=== PATIENT | female | born 1975 | race Caucasian/White ===

== ENCOUNTER 2022-07-31 08:04 | Outpatient (REF) | payer OTHER, SELFPAY ==
[2022-07-31 10:44] LABS: Hematocrit 40.3 % (37.0-47.0); Hemoglobin 13.4 g/dl (12.0-16.0); Mean Corpuscular HGB Conc 33.3 g/dl (31.0-35.0); Mean Corpuscular Hemoglobin 29.6 pg (27.0-33.0); Mean Platelet Volume 10.6 fL (9.4-12.3); Platelet Count 246 X10*3/uL (160-400); Red Blood Count 4.53 X10*6/uL (4.20-5.50); Red Cell Distribution Width 12.3 % (11.0-16.0); White Blood Count 6.1 X10*3/uL (4.8-10.8)
[2022-07-31 11:05] LABS: Alanine Aminotransferase 21 U/L (0-31); Albumin Level 4.2 g/dL (3.5-5.0); Alkaline Phosphatase 82 U/L (39-117); Anion Gap 11 (12-20); Aspartate Amino Transferase 24 U/L (5-31); Bilirubin Total 0.7 mg/dL (0.0-1.0); Blood Urea Nitrogen 11 mg/dL (9-16); Calcium 9.4 mg/dL (8.4-10.2); Carbon Dioxide 24 mmol/L (22-29); Chloride 107 mmol/L (96-108); Cholesterol 136 mg/dL; Estimated Glomerular Filt Rate > 60; Glucose Fasting 87 mg/dL (60-99); HDL Cholesterol 49 mg/dL; LDL Cholesterol Calculated 76 mg/dl; Potassium 4.1 mmol/L (3.3-5.1); Sodium 138 mmol/L (135-145); Total Protein 6.6 g/dL (6.5-8.0); Triglycerides 56 mg/dL
[2022-07-31 11:49] LABS: HCG Quantitative < 2 mIU/mL; TSH reflex Free T4 1.04 uIU/mL (0.32-4.0)
== END 2022-07-31 08:05 | disposition home or self-care (01) ==
LOC: HO.WFDLDS 08:04
PROVIDERS: Visit Provider Hospitalist
DX: Z00.00 Encounter for general adult medical examination without abnormal findings (principal); N92.6 Irregular menstruation, unspecified
CPT/HCPCS: 36415; 80053; 80061; 84443; 84702; 85027

== ENCOUNTER 2023-04-18 08:30 | Day surgery (SDC) | payer OTHER, SELFPAY ==
[2023-04-18 09:25] LABS: UPreg QC Valid YES; Urine Pregnancy NEGATIVE (NEGATIVE)
[2023-04-18 09:30] VITALS: BP 135/82; PULSE 61; RESP 18; TEMP 36.9; O2SAT 100; BMI 23.5
--- NOTE | 2023-04-18 09:31 | HO.ANESPROP2 ---
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 Meds Allergies Allergy/AdvReac Type Severity Reaction Status Date / Time No Known Allergies Allergy Verified 07/23/22 14:21 Exam Pertinent Lab Results Pertinent Lab Results: Laboratory Tests 04/18/23 09:05 Urine Test NEGATIVE Airway Mallampati Class: II TM Dist: >3cm Neck ROM: Full Loose/Missing/Broken Teeth: No Heart: RRR Lungs: CTA Assessment and Plan Assessment Anesthesia Assessment: Anesthesia Plan Discussed and Chart Reviewed Final Anesthetic Review History of Problems with Anesthesia: No NPO: Yes ASA Class: I Final Preanesthetic Review: Meds/Allgs Chart Reviewed, Consent Obtained/Reviewed and Anes Risks/Benef Reviewed Patient Risk: Low Procedure Risk: Low Anesthetic Plan Anesthetic Plan: MAC: Disposition: Standard PACU
--- NOTE | 2023-04-18 09:35 | MHC.SHP ---
Pre-Procedural Eval Section A Date of Service: 04/18/23 The patient is an INPATIENT: No The History & Physical has been completed within 30 days and I have reviewed it.: No Section B Chief Complaint: Colon cancer screening Relevant Family History (Specify if Yes): No Relevant Social History: None Present Medications: see Short Stay Collaborative assessment Medical History: No relevant PMH History of Previous Operations: No relevant previous surgery Allergies: Allergies Allergy/AdvReac Type Severity Reaction Status Date / Time No Known Allergies Allergy Verified 07/23/22 14:21 Review of Systems Sugical H&P ROS: Negative: Constitution, Cardiovascular, Respiratory and Gastrointestinal Exam Surgical H&P Exam: Normal: Heart, Normal: Lungs, Normal: Extremities and Normal: Abdomen Plan Diagnosis/Plan: Change (proceed with colonoscopy today) I have reviewed the history and physical and performed a pertinent physical examination on my patient. No changes have occurred unless specified. Time Spent With Patient Time: Total time managing care of this patient today ____ minutes.
[2023-04-18] MEDS: Lactated Ringers 1,000 ML 100 ML IVCONT (09:39)
--- NOTE | 2023-04-18 09:41 | W.PM.OPN ---
Operative Note Operative Note Date of Service: 04/18/23 Narrative: COLONOSCOPY TILL CECUM WITH BIOPSIES Pre-op diagnosis: Colon cancer screening (1st colonoscopy) Post-op diagnosis:? Colon polyp, diverticulosis, hemorrhoids Endoscopist:? Malvin Still MD Anesthesia:?MAC Consent: Indications for the procedure and potential complications of bleeding, perforation, reaction to medications and missed diagnosis were discussed with the patient and informed consent was obtained. Instrument: Olympus PCF H 190 L variable stiffness pediatric colonoscope Monitoring: Vital signs and clinical assessment, intermittent blood pressure monitoring, continuous EKG monitoring, Pulse oximetry and Carbon Dioxide monitoring were done throughout the procedure. Please see anesthesia flowsheet. Colon withdrawl time was 10 minutes. Procedure: The patient was placed in the left lateral decubitis position and pre-procedure medications were administered. After a digital rectal examination of the ano-rectum, the video colonoscope was inserted into the rectum and advanced through the colon to the cecum. The colonoscope was slowly withdrawn in a retrograde panoramic fashion and the colon mucosa was carefully examined including a retroflexed view of the rectum. Findings and interventions are described below. Procedure Difficulty: Colon was long and tortuous and there was some loop formation Findings: Terminal Ileum: Not evaluated Cecum: Normal Ascending Colon: A 2-3 mm sessile polyp in the proximal AC - removed with a cold biopsy Transverse Colon: Normal Descending Colon: Normal Sigmoid Colon: Moderate diverticulosis Rectum: Normal Ano-rectum: Moderate internal hemorrhoids Colon preparation: Excellent [place] Bowel Preparation Scale Right colon; 3 Transverse colon: 3 Left colon; 3 (0 = Unprepared colon segment with mucosa not seen due to solid stool that cannot be cleared. 1 = Portion of mucosa of the colon segment seen, but other areas of the colon segment not well seen due to staining, residual stool and/or opaque liquid. 2 = Minor amount of residual staining, small fragments of stool and/or opaque liquid, but mucosa of colon segment seen well. 3 = Entire mucosa of colon segment seen well with no residual staining, small fragments of stool or opaque liquid) Impression and Post Procedure Diagnosis: Colonoscopy Findings: One tiny polyp removed Moderate diverticulosis seen in the sigmoid colon Moderate hemorrhoids on retroflexed exam. Plan: I will send a letter with pathology results Repeat Colonoscopy interval based on path results - in 5 years if polyps are adenomatous and 10 years if polyps are hyperplastic. Above findings were reviewed with the patient and colon polyps and diverticulosis handouts were given in the discharge area
[2023-04-18 10:17] VITALS: BP 108/62; PULSE 69; RESP 18; TEMP 36.3; O2SAT 100
[2023-04-18 10:32] VITALS: BP 111/67; PULSE 60; RESP 16; TEMP 36.8; O2SAT 100
== END 2023-04-18 10:57 | disposition home or self-care (01) ==
PROVIDERS: Anesthesiology; Visit Provider Internal Medicine Gastroenterology
PROC: 0DJD8ZZ Inspection of Lower Intestinal Tract, Via Natural or Artificial Opening Endoscopic (ICD-10-PCS; CPT 45378; principal; 2023-04-18 09:40)
DX: Z12.11 Encounter for screening for malignant neoplasm of colon (principal); D12.2 Benign neoplasm of ascending colon; K57.30 Diverticulosis of large intestine without perforation or abscess without bleeding; K64.8 Other hemorrhoids; K56.2 Volvulus
CPT/HCPCS: 45380; 81025; 88305; J2704

== ENCOUNTER → 2023-04-18 08:30 | Outpatient (BNV) | payer OTHER, SELFPAY | PROVIDERS: Visit Provider Internal Medicine Gastroenterology | DX: Z12.11 Encounter for screening for malignant neoplasm of colon (principal); D12.2 Benign neoplasm of ascending colon; K57.30 Diverticulosis of large intestine without perforation or abscess without bleeding; K64.8 Other hemorrhoids | CPT/HCPCS: 45380 ==

== ENCOUNTER 2023-08-28 10:30 | Outpatient (AMB) | payer OTHER, SELFPAY ==
--- NOTE | 2023-08-28 10:42 | MHC.PC.OV ---
Vital Signs 08/28/23 10:43 Height 5 ft 7 in Weight 159 lb 2 oz BMI 24.9 BP 110/66 Blood Pressure Location Rt brachial Position Sitting Respiration 14 Pulse 67 Pulse Source Pulse Oximeter Temp 97.4 F Temp Source Temporal Artery Scan Pulse Oximetry (%) 99 Oxygen Delivery Method Room Air Intake Visit Reasons: Transfer of Care Intake Note: Patient is tranfer of care of care from [facility]. Studio Data Analyst Required: No Accompanied by: Self / Same As Patient Allergies No Known Allergies Allergy (Verified 08/28/23 10:47) Tobacco use date assessed: 08/28/23 Dental Screening Dental Screen Date: 08/28/23 Did you have a dental visit in the last 12 months?: Yes Did you have a dental problem in the last 6 months where you did not have access to dental care?: No Was dental information given to patient?: Patient has dentist HPI Transfer of Care HPI Details New Patient/Transfer of Care: ?? Prior PCP:?, [facility] Last office visit/CPE:?1 yr w/ SV Acute issue(s):? R elbow tendonitis & lateral epicondylitis L hamstring strain ?? PMHx:? None SurgHx:?Skin excisions FHx:? Mom: Billiary duct CA Dad: Prostate CA. Sister: DM1. Neice DM1. mGF: Heart Disease SocHx: nonsmoker. EtOH: Occassional 2 gl per week. No drugs PFSH Medical History (Updated 08/28/23 @ 11:40 by Amilcar Frederick) Tendonitis Colon cancer screening Surgical History (Updated 08/28/23 @ 10:54 by Gaby Perez CMA) No pertinent past surgical history Family History (Updated 08/28/23 @ 10:56 by Gaby Perez CMA) Mother High blood pressure Biliary tract cancer Father High blood pressure Prostate cancer Paternal Grandmother Diabetes 1.5, managed as type 2 Sister Type 1 diabetes Brother Substance abuse in family Social History (Updated 08/28/23 @ 10:59 by Gaby Perez CMA) Household Members: Family Housing: House Are you a primary long term care administrator to a significant other at home: No Do you presently have visiting nurse or other home services: No 75 years or older and lives alone: No Alcohol intake: current Alcohol intake frequency: holidays/special occasions only Alcohol type: wine and other Patient Tobacco Use Status: Never used Tobacco e-Cigarette/Vaping Use: Never Used Agree to transfusion: No service: No Current occupational status: employed 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 Cognitive needs: No Hearing needs: No Vision needs: No Review of Systems Const Denies chills, Denies fatigue, Denies fever(s), Denies headache(s) and Denies weakness ENT Denies dizziness and Denies headache(s) Card Denies chest pain, Denies lightheadedness, Denies dyspnea and Denies other (Palpitations) Resp Denies cough, Denies dyspnea, Denies wheezing and Denies other ( shortness of breath) Musc Denies numbness and Denies tingling Neuro Denies dizziness, Denies headache(s), Denies numbness, Denies tingling, Denies paresthesias and Denies weakness Psych Denies anxiety and Denies depression Endo Denies fatigue Aller/Immun Denies wheezing Physical exam (Primary Care) Vital Signs: Last Vital Signs Temp 97.4 F 08/28/23 10:43 Pulse 67 08/28/23 10:43 Resp 14 08/28/23 10:43 BP 110/66 08/28/23 10:43 Pulse Ox 99 08/28/23 10:43 Oxygen Delivery Method Room Air 08/28/23 10:43 BMI result Body Mass Index 24.9 Tobacco/Smoking Status: Tobacco use Status Tobacco use date assessed 08/28/23 08/28/23 11:00 Patient Tobacco Use Status Never used Tobacco 08/28/23 10:59 e-Cigarette/Vaping Use Never Used 08/28/23 10:59 Const General: no acute distress and well developed Nutritional Appearance: well nourished Orientation/consciousness: patient oriented x3 [facility]: Yes normocephalic and Yes atraumatic Eyes General: appearance normal, both eyes and all related structures Pupils: Equal, round and reactive pupils present EOM: EOMs intact bilaterally Resp Effort & Inspection: normal respiratory effort Auscultation: clear to auscultation bilaterally Cardio Rate: regular rate Rhythm: regular rhythm Heart sounds: S1 normal heart sound present, S2 normal heart sound present, no gallops, no murmurs and no rubs Neuro General: patient oriented x3 and gait normal Cranial nerves: Yes Equal, round and reactive pupils present Psych Affect: normal affect Assessment and Plan Assessment & Plan (1) Right elbow tendonitis: Code(s): M77.8 - Other enthesopathies, not elsewhere classified Plan: Right?elbow?tendinitis?and?epicondylitis Advised?relative?rest,?ice/heat?and?NSAIDs Also?advise?a?supportive?brace?at?top?of?forearm?which?she?can?get?OTC If?not?improving?we?can?refer?her?for?occupational?therapy?and?referral?to?ortho?for?consideration?of?injection?therapy. (2) Lateral epicondylitis: Code(s): M77.10 - Lateral epicondylitis, unspecified elbow Plan: As above (3) Strain of left hamstring: Code(s): S76.312A - Strain of muscle, fascia and tendon of the posterior muscle group at thigh level, left thigh, initial encounter Plan: As?above,?she?can?use?NSAIDs,?ice/heat?and?cautious?stretching?or?follow-up?on?physical?therapy?recommendations?of?loading. Also?advised?warming?up?muscles?prior?to?her?sport If?not?improving?would?refer?her?to?physiatry Orders: Orders Comprehensive [place]. Panel Fast Today Z00.00 - Encounter for general adult medical examination without abnormal findings Lipid Panel Today Z00.00 - Encounter for general adult medical examination without abnormal findings Microalbumin, Random (w Creat) Today I10 - Essential (primary) hypertension UA and rflx microscopic Today Z00.00 - Encounter for general adult medical examination without abnormal findings Erythrocyte Sedimentation Rate Today M77.10 - Lateral epicondylitis, unspecified elbow Complete Blood Count Auto Diff Today Z00.00 - Encounter for general adult medical examination without abnormal findings TSH reflex Free T4 Today Z00.00 - Encounter for general adult medical examination without abnormal findings Coding Level of Care Code New Pt Level 3 (94060) Diagnoses Right elbow tendonitis M77.8 Lateral epicondylitis M77.10 Strain of left hamstring S76.312A
[2023-08-28 10:43] VITALS: BP 110/66; PULSE 67; RESP 14; TEMP 36.3; O2SAT 99; BMI 24.9
== END 2023-08-28 11:48 | disposition home or self-care (01) ==
PROVIDERS: PCP Family Medicine; Visit Provider Family Medicine
DX: M77.8 Other enthesopathies, not elsewhere classified (principal); M77.10 Lateral epicondylitis, unspecified elbow; S76.312A Strain of muscle, fascia and tendon of the posterior muscle group at thigh level, left thigh, initial encounter
CPT/HCPCS: 99203

== ENCOUNTER 2023-11-13 08:02 | Outpatient (REF) | payer OTHER, SELFPAY ==
[2023-11-13 11:11] LABS: MANUAL DIFF FLAG NO
[2023-11-13 11:18] LABS: Appearance Urine Clear; Color Urine Yellow; Glucose Urine UA Negative (Negative); Leukocyte Esterase Urine Trace (Negative); Nitrite Urine Negative (Negative); PH 6.5 (5.0-9.0); Specific Gravity - Urine 1.015 (1.005-1.025); UMIC TRIGGER UA YES; Urine Blood Moderate (2+) (Negative); Urine Ketones Negative (Negative); Urine Protein Negative (Neg-Trace)
[2023-11-13 11:22] LABS: Bacteria Urine None Seen (None Seen); Hyaline Casts Urine 0-2 /LPF (0-2); RBC Urine >20 /HPF (0-2); Squamous Epithelial Cell Urine 0-2 /HPF (0-2); WBC Urine 0-5 /HPF (0-5)
[2023-11-13 11:30] LABS: Basophils Percent Auto 0.6 % (0-2); Eosinophils Absolute Auto 0.2 X10*3/uL (0.0-0.4); Eosinophils Percent Auto 2.9 % (0-4); Hematocrit 39.8 % (37.0-47.0); Imm Gran Abs Auto 0.02 X10*3/uL (0.00-0.03); Imm Gran Pct Auto 0.3 % (0.0-0.4); Lymphocytes Absolute Auto 1.6 X10*3/uL (1.2-4.9); Lymphocytes Percent Auto 25.4 % (20-40); Mean Corpuscular HGB Conc 35.2 g/dl (31.0-35.0); Mean Corpuscular Hemoglobin 30.8 pg (27.0-33.0); Mean Corpuscular Volume 87.7 fL (80.0-98.0); Mean Platelet Volume 10.2 fL (9.4-12.3); Monocytes Absolute Auto 0.5 X10*3/uL (0.1-1.2); Monocytes Percent Auto 8.1 % (2-11); Neutrophils Absolute Auto 3.9 x10*3/uL (2.0-8.3); Neutrophils Percent Auto 62.7 % (45-73); Platelet Count 243 X10*3/uL (160-400); Red Blood Count 4.54 X10*6/uL (4.20-5.50); White Blood Count 6.2 X10*3/uL (4.8-10.8)
[2023-11-13 12:01] LABS: Alanine Aminotransferase 25 U/L (0-31); Albumin Level 4.2 g/dL (3.5-5.0); Alkaline Phosphatase 71 U/L (39-117); Anion Gap 11 (12-20); Aspartate Amino Transferase 25 U/L (5-31); Bilirubin Total 0.7 mg/dL (0.0-1.0); Blood Urea Nitrogen 9 mg/dL (9-16); Calcium 9.5 mg/dL (8.4-10.2); Carbon Dioxide 27 mmol/L (22-29); Chloride 106 mmol/L (96-108); Cholesterol 154 mg/dL (<200); Estimated Glomerular Filt Rate > 60; Glucose Fasting 82 mg/dL (60-99); HDL Cholesterol 51 mg/dL (>40); LDL Cholesterol Calculated 87 mg/dL (<100); Potassium 3.7 mmol/L (3.3-5.1); Sodium 140 mmol/L (135-145); TSH reflex Free T4 0.98 uIU/mL (0.32-4.0); Triglycerides 81 mg/dL (<150)
[2023-11-13 12:03] LABS: Creatinine Urine 130.66 mg/dL; Microalbum/Creatinine Ratio Ur 6.8 ug/mg cr (<30)
[2023-11-13 12:10] LABS: Erythrocyte Sedimentation Rate 5 MM/HR (0-20)
== END 2023-11-13 08:03 | disposition home or self-care (01) ==
LOC: HO.WFDLDS 08:02
PROVIDERS: Visit Provider Family Medicine
DX: Z00.00 Encounter for general adult medical examination without abnormal findings (principal); I10 Essential (primary) hypertension; M77.10 Lateral epicondylitis, unspecified elbow
CPT/HCPCS: 36415; 80053; 80061; 81001; 82043; 82570; 84443; 85025; 85652

== ENCOUNTER 2023-11-19 08:31 | Outpatient (AMB) | payer OTHER, SELFPAY ==
--- NOTE | 2023-11-19 08:40 | A.OFFPC_ITS ---
Vital Signs 11/19/23 08:44 Height 5 ft 7 in Weight 159 lb 6 oz BMI 25.0 BP 110/62 Blood Pressure Location Rt brachial Position Sitting Respiration 16 Pulse 63 Pulse Source Pulse Oximeter Temp 97.8 F Temp Source Tympanic Pulse Oximetry (%) 97 Oxygen Delivery Method Room Air Intake Visit Reasons: CPE with f/u labs and health maint. 30 mins Intake Note: CPE Is last menstrual period known: Yes Last menstrual period: 11/17/23 Post menopausal: No Patient : No Allergies No Known Allergies Allergy (Verified 11/19/23 08:41) Tobacco use date assessed: 11/19/23 Dental Screening Dental Screen Date: 11/19/23 Did you have a dental visit in the last 12 months?: Yes Did you have a dental problem in the last 6 months where you did not have access to dental care?: No HPI CPE with f/u labs and health maint. 30 mins HPI Details 48 y/o female presents for a CPE with f/ u labs and health maintenance. Labs drawn 11/13/23. Reviewed labs with pt. Triglycerides 81. TC 154. LDL 87. HDL 51. Her labs were fine. She notes she eats a healthy diet. She keeps herself active - goes to the gym 3x a week and runs 2x a week. Last pap smear was this year and was normal per pt. She goes to [facility] for her mammograms. Pt notes headaches - she states she works a stressful job. HPI Comments History of Present Illness Details Documentation assistance for Jeremiah Luu MD, was provided by Amilcar Frederick, Convenience Store Manager on 11/19/2023 at 8:35 AM EST. I, Dr. Luu, have read, observed, and verified documentation. [facility] Medical History (Updated 11/19/23 @ 09:14 by Amilcar Frederick) Tendonitis Colon cancer screening Surgical History (Updated 08/28/23 @ 10:54 by Gaby Perez CMA) No pertinent past surgical history Family History (Updated 08/28/23 @ 10:56 by Gaby Perez CMA) Mother High blood pressure Biliary tract cancer Father High blood pressure Prostate cancer Paternal Grandmother Diabetes 1.5, managed as type 2 Sister Type 1 diabetes Brother Substance abuse in family Social History (Updated 11/19/23 @ 08:42 by Serenity Schmidt) Household Members: Family Housing: House Are you a primary animal care provider to a significant other at home: No Do you presently have visiting nurse or other home services: No 75 years or older and lives alone: No Alcohol intake: current Alcohol intake frequency: holidays/special occasions only Alcohol type: wine and other Patient Tobacco Use Status: Never used Tobacco e-Cigarette/Vaping Use: Never Used Agree to transfusion: No service: No Current occupational status: employed 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 Cognitive needs: No Hearing needs: No Vision needs: No Female Reproductive History Menstrual Date of last menstrual period: 11/17/23 Questionnaire PHQ-9 Over the last 2 weeks, how often have you been bothered by any of the following problems? 1. Little interest or pleasure in doing things: not at all 2. Feeling down, depressed, or hopeless: several days 3. Trouble falling or staying asleep, or sleeping too much: not at all 4. Feeling tired or having little energy: not at all 5. Poor appetite or overeating: not at all 6. Feeling bad about yourself - or that you are a failure or have let yourself or your family down: several days 7. Trouble concentrating on things, such as reading the newspaper or watching television: not at all 8. Moving or speaking so slowly that other people could have noticed. Or the opposite - being so fidgety or restless that you have been moving around a lot more than usual: not at all 9. Thoughts that you would be better off or of hurting yourself in some way: not at all Total score: 2 Depression Screening Interpretation: Negative Depression Screening Done: Yes 47318 - PHQ-9 Billing: Yes Source: Developed by Drs. Carlos Manuel Renteria, Whitney Ca, Navdeep Reid and colleagues, with an educational marimar from [employer]. Thrive Questionnaire Date Thrive assessed: 11/19/23 I am a: Patient What is your living situation today?: I have a steady place to live Within the past 12 months, did the food you bought not last and you didn't have the money to get more?: Never true Within the past 12 months, did you worry whether your food would run out before you got money to buy more?: Never true Do you have trouble paying for medicines?: No Do you have trouble getting transportation to medical appointments?: No Do you have trouble paying your heating and electricity bill?: No Do you have trouble taking care of your child, family member or friend?: No Do you have trouble with day-to-day activities such as bathing, preparing meals, shopping, managing finances, etc.?: No Are you currently unemployed and looking for a job?: No Are you interested in more education?: No Please select the resources that you would like help with: None Currently or been in a relationship where the following occur: No concerns reported THRIVE Score: 0 AUDIT C Alcohol Use Questionnaire (AUDIT-C) 1. How often do you have a drink containing alcohol?: Monthly or less 2. How many drinks containing alcohol do you have on a typical day when you are drinking?: 1 or 2 3. How often do you have six or more drinks on one occasion?: Less than monthly Total Score: 2 Score Reviewed/Action Taken: Yes LIZ-7 AMB Questionnaire LIZ-7 Date LIZ - 7 assessed: 11/19/23 Feeling nervous, anxious, or on edge: 1 = Several days Not being able to stop or control worryin = Not at all Worrying too much about different things: 0 = Not at all Trouble relaxin = Several days Being so restless that it is hard to sit still: 0 = Not at all Becoming easily annoyed or irritable: 1 = Several days Feeling afraid as if something awful might happen: 1 = Several days Total LIZ-7 score (0-4 normal; 5-9 mild; 10-14 moderate; 15-21 severe): 4 Source: Developed by Drs. Carlos Manuel Renteria, Whitney Ca, Navdeep Reid and colleagues, with an educational marimar from [employer]. LIZ-7 Assessment Billing LIZ-7 Assessment Tool: LIZ-7 Assessment [id number] Review of Systems Const Denies chills, Denies fatigue, Denies fever(s), Reports headache(s) and Denies weakness Eyes Denies change in vision ENT Denies dizziness, Reports headache(s), Denies hearing loss, Denies nasal congestion, Denies sinus pain, Denies sinus pressure and Denies sore throat Card Denies chest pain, Denies lightheadedness, Denies dyspnea and Denies other (palpitations) Resp Denies cough, Denies dyspnea and Denies wheezing GI Denies abdominal pain, Denies melena, Denies hematochezia, Denies change in bowel habits, Denies dyspepsia and Denies nausea Denies hematuria and Denies dysuria Musc Denies abnormal gait, Denies myalgias, Denies arthralgias, Denies numbness and Denies tingling Skin/Breast Denies rash, Denies unusual bruising and Denies wounds Neuro Denies abnormal gait, Denies dizziness, Reports headache(s), Denies memory loss, Denies numbness, Denies Sensory deficit (Neuro), Denies tingling and Denies weakness Psych Denies anxiety, Denies depression and Denies memory loss Endo Denies cold intolerance, Denies fatigue, Denies heat intolerance, Denies polydipsia and Denies polyuria Prabhu/Lymph Denies easy bleeding and Denies easy bruising Aller/Immun Denies wheezing Physical exam (Primary Care) Vital Signs: Last Vital Signs Temp 97.8 F 11/19/23 08:44 Pulse 63 11/19/23 08:44 Resp 16 11/19/23 08:44 BP 110/62 11/19/23 08:44 Pulse Ox 97 11/19/23 08:44 Oxygen Delivery Method Room Air 11/19/23 08:44 BMI result Body Mass Index 25.0 Tobacco/Smoking Status: Tobacco use Status Tobacco use date assessed 11/19/23 11/19/23 08:47 Patient Tobacco Use Status Never used Tobacco 11/19/23 08:47 e-Cigarette/Vaping Use Never Used 11/19/23 08:47 PHQ-9: PHQ-9 Score PHQ-9: Total score 2 11/19/23 08:47 Depression Screening Interpretation: Negative Thrive Assessment: Date of Thrive Assessment Date Thrive assessed 11/19/23 11/19/23 08:47 Currently or been in a relationship where the following occur: No concerns reported Const General: no acute distress, well developed, alert and awake Nutritional Appearance: well nourished Orientation/consciousness: patient oriented x3 HENMT Head: Yes normocephalic and Yes atraumatic Ears: hearing grossly normal bilaterally and TM's normal bilaterally General nose exam: Normal external nose present and Normal nares present Mouth: Normal oral and palatal mucosa present and moist mucous membranes Teeth and gingiva: dentition normal Throat: Yes posterior oropharynx normal Eyes General: appearance normal, both eyes and all related structures Pupils: Equal, round and reactive pupils present and Pupil accommodation reflex normal EOM: EOMs intact bilaterally Neck Neck: Yes normal visual inspection, Yes no lymphadenopathy and Yes trachea midline Thyroid: Thyroid normal Carotids: no bruits Lymphatic: no lymphadenopathy noted Chest Chest palpation & inspection: normal inspection of the chest Resp Effort & Inspection: normal respiratory effort Auscultation: clear to auscultation bilaterally Cardio Rate: regular rate Rhythm: regular rhythm Heart sounds: S1 normal heart sound present, S2 normal heart sound present, no gallops, no murmurs and no rubs Bruits: no abdominal aortic bruits and no carotid bruits GI Palpation (GI): No Abdominal aortic bruit present, Soft to palpation, nontender, No hepatosplenomegaly present and No Rebound tenderness present Auscultation: normal bowel sounds General: Yes no CVA tenderness Back/Spine/Pelvis Back: no CVA tenderness Cervical Spine: cervical ROM normal and No Cervical spine tenderness Thoracic/Lumbar Spine: thoraco-lumbar ROM normal, No pain with thoraco-lumbar ROM, No thoracic spinal tenderness and No lumbar spinal tenderness Skin Lesions: no lesions Rashes: no rashes Trauma: no lacerations or abrasions Wounds: no wounds Nails: normal Neuro General: patient oriented x3 Cranial nerves: Yes Equal, round and reactive pupils present Cognition (Neuro): normal cognition Gait exam (Neuro): Normal gait present Motor exam (neuro): 5/5 motor strength present throughout Sensory Exam: No Sensory deficit (Neuro) Deep tendon reflexes (DTR's): Right patellar reflex intensity grade: 2+ and Left patellar reflex intensity grade: 2+ Extrem General: Yes normal to inspection and No edema Psych Appearance: grossly normal Affect: normal affect Attitude: cooperative Thought process: Normal thought process present Assessment and Plan Assessment & Plan (1) Adult general medical exam: Code(s): Z00.00 - Encounter for general adult medical examination without abnormal findings Plan: 48-year-old?female?presents?for?complete?physical?exam Encouraged?healthy?diet?with?active?lifestyle?and?plenty?of?exercise (2) Strain of left hamstring: Code(s): S76.312A - Strain of muscle, fascia and tendon of the posterior muscle group at thigh level, left thigh, initial encounter Plan: Encouraged?gentle?stretching?and?relative?rest She?will?let?me?know?if?this?worsens (3) Right elbow tendonitis: Code(s): M77.8 - Other enthesopathies, not elsewhere classified Plan: Encouraged?gentle?stretching?and?relative?rest. Offere d?occupational?therapy.??She?is?declining?this?for?now?she?will?let?me?know?if?s he?has?worsening?of?her?symptoms. (4) Breast cancer screening by mammogram: Code(s): Z12.31 - Encounter for screening mammogram for malignant neoplasm of breast Plan: Patient?[facility]and?I?will?request?the?report She?notes?that?she?was?called?up?for?additional?images?which?then?were?reported? as?negative. (5) Colon cancer screening: Code(s): Z12.11 - Encounter for screening for malignant neoplasm of colon Plan: Patient?had?a?colonoscopy?in?2023?which?found?a?polyp.??Advised?to?follow- up?in?5?years. Up-to-date,?follow-up?in?2028?with? (6) Screening for cervical cancer: Code(s): Z12.4 - Encounter for screening for malignant neoplasm of cervix Plan: Patient?had?Pap?smear?this?year?and?is?up-to-date Follow-up?with?[facility]?as?recommended (7) Headache: Code(s): R51.9 - Headache, unspecified Plan: Recurrent?headaches?which?patient?notes?are?most? common?on?Tuesdays?which?is?her?most?stressful?day?at?work. Encouraged?rest/relaxation,?good?hydration?and?gentle?stretching?of?neck?and?benjamín ulder?muscle Call?or?return?to?office?if?worsening Orders: Orders Lipid Panel 11 Months Z00.00 - Encounter for general adult medical examination without abnormal findings TSH reflex Free T4 11 Months Z00.00 - Encounter for general adult medical examination without abnormal findings UA and rflx microscopic 11 Months Z00.00 - Encounter for general adult medical examination without abnormal findings Vitamin D 25-OH Total 11 Months E55.9 - Vitamin D deficiency, unspecified Comprehensive [place]. Panel Fast 11 Months Z00.00 - Encounter for general adult medical examination without abnormal findings Microalbumin, Random (w Creat) 11 Months I10 - Essential (primary) hypertension Coding Level of Care Code Est Pt Level 3 (76456) Est Pt Prev Care 40-64y(68621) Diagnoses Adult general medical exam Z00.00 Strain of left hamstring S76.312A Right elbow tendonitis M77.8 Breast cancer screening by mammogram Z12.31 Colon cancer screening Z12.11 Screening for cervical cancer Z12.4 Headache R51.9 Additional Codes LIZ-7 Assessment Billing - LIZ-7 Assessment Tool: LIZ-7 Assessment 85903 ([id number])
[2023-11-19 08:44] VITALS: BP 110/62; PULSE 63; RESP 16; TEMP 36.6; O2SAT 97; BMI 25.0
== END 2023-11-19 09:19 | disposition home or self-care (01) ==
PROVIDERS: PCP Family Medicine; Visit Provider Family Medicine
DX: Z00.00 Encounter for general adult medical examination without abnormal findings (principal); S76.312A Strain of muscle, fascia and tendon of the posterior muscle group at thigh level, left thigh, initial encounter; R51.9 Headache, unspecified; M77.8 Other enthesopathies, not elsewhere classified; Z12.31 Encounter for screening mammogram for malignant neoplasm of breast; Z12.11 Encounter for screening for malignant neoplasm of colon
CPT/HCPCS: 99396

== ENCOUNTER 2023-12-31 10:39 | Outpatient (AMB) | payer OTHER, SELFPAY ==
--- NOTE | 2023-12-31 11:08 | A.OFFPC_ITS ---
Vital Signs 12/31/23 11:12 Height 5 ft 7 in Weight 159 lb BMI 24.9 BP 110/70 Blood Pressure Location Rt brachial Position Sitting Respiration 16 Pulse 76 Pulse Source Pulse Oximeter Temp 98.7 F Temp Source Oral Pulse Oximetry (%) 98 Oxygen Delivery Method Room Air Intake Visit Reasons: LOWER RIGHT BACK PAIN Intake Note: RT lower back pain started in august then it got better and then it came back per patient ,then when she works out she feels the pain again shes not sure if it is a muscular issue. patient tried soaping machine back tender and felt worsening pain. Allergies No Known Allergies Allergy (Verified 12/31/23 11:12) Medication List - Last Reconciled 12/31/23 by Jeremiah Luu MD [id number]-rhajno ox-zinc 500-750-1.5-25 rny-fa-rr-mg ER tabs PO Tobacco use date assessed: 11/19/23 Dental Screening Dental Screen Date: 11/19/23 HPI LOWER RIGHT BACK PAIN HPI Details 48 y/o female presents today with compla ints of low R back pain. Denies any fever/chills. Denies any dysuria. She notes she woke up in August with significant back pain. Pain had went away but had come back two days ago. Had some RBC in urine. [facility] Medical History (Updated 12/31/23 @ 11:42 by Amilcar Frederick) Tendonitis Colon cancer screening Surgical History (Updated 08/28/23 @ 10:54 by Gaby Perez CMA) No pertinent past surgical history Family History (Updated 08/28/23 @ 10:56 by Gaby Perez CMA) Mother High blood pressure Biliary tract cancer Father High blood pressure Prostate cancer Paternal Grandmother Diabetes 1.5, managed as type 2 Sister Type 1 diabetes Brother Substance abuse in family Social History (Updated 11/19/23 @ 08:42 by Serenity Schmidt [facility]) Household Members: Family Housing: House Are you a primary customer care voice consultant to a significant other at home: No Do you presently have visiting nurse or other home services: No 75 years or older and lives alone: No Alcohol intake: current Alcohol intake frequency: holidays/special occasions only Alcohol type: wine and other Patient Tobacco Use Status: Never used Tobacco e-Cigarette/Vaping Use: Never Used Agree to transfusion: No service: No Current occupational status: employed 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 Cognitive needs: No Hearing needs: No Vision needs: No Questionnaire Thrive Questionnaire Date Thrive assessed: 11/19/23 LIZ-7 AMB Questionnaire LIZ-7 Date LIZ - 7 assessed: 11/19/23 Source: Developed by Drs. Carlos Manuel Renteria, Whitney Ca, Navdeep Reid and colleagues, with an educational marimar from [employer]. Review of Systems Const Denies chills, Denies fatigue, Denies fever(s), Denies headache(s) and Denies weakness ENT Denies dizziness and Denies headache(s) Card Denies dyspnea Resp Denies cough, Denies dyspnea, Denies wheezing and Denies other (shortness of breath) Musc Reports back pain, Denies numbness and Denies tingling Neuro Denies dizziness, Denies headache(s), Denies numbness, Denies tingling and Denies weakness Psych Denies anxiety and Denies depression Endo Denies fatigue Aller/Immun Denies wheezing Physical exam (Primary Care) Vital Signs: Last Vital Signs Temp 98.7 F 12/31/23 11:12 Pulse 76 12/31/23 11:12 Resp 16 12/31/23 11:12 BP 110/70 12/31/23 11:12 Pulse Ox 98 12/31/23 11:12 Oxygen Delivery Method Room Air 12/31/23 11:12 BMI result Body Mass Index 24.9 Tobacco/Smoking Status: Tobacco use Status Tobacco use date assessed 11/19/23 12/31/23 11:11 Patient Tobacco Use Status Never used Tobacco 12/31/23 11:11 e-Cigarette/Vaping Use Never Used 12/31/23 11:11 Thrive Assessment: Date of Thrive Assessment Date Thrive assessed 11/19/23 12/31/23 11:11 Const General: well developed; No acute distress Nutritional Appearance: well nourished Orientation/consciousness: patient oriented x3 HENMT Head: Yes normocephalic and Yes atraumatic Eyes General: appearance normal, both eyes and all related structures Pupils: Equal, round and reactive pupils present EOM: EOMs intact bilaterally Resp Effort & Inspection: normal respiratory effort Neuro General: patient oriented x3 and gait normal Cranial nerves: Yes Equal, round and reactive pupils present Psych Affect: normal affect Coding Level of Care Code Est Pt Level 3 (55684) Diagnoses Low back pain M54.50 Hematuria R31.9 Assessment & Plan Assessment & Plan (1) Low back pain: Code(s): M54.50 - Low back pain, unspecified Category: Medical Plan: Right?mid/low?back?pain?which?does?not?radiate. No?fevers?or?chills No?dysuria At?prior testing,?urinalysis?showed?blood?but?patient?noted?that?it?was?during?her. Repeat?urine?dip?test?today completely?negative This?is?most?likely?musculoskeletal Advised conservative?care?including?ice/heat,?NSAIDs?and?will?give?her?a?short?course?of ?muscle?relaxer Can?not?rule?out?atypical?presentation? of?chronic?cholecystitis.??Advised?she?avoid?fried?and?fatty?foods. (2) Hematuria: Code(s): R31.9 - Hematuria, unspecified Category: Medical Plan: As?above,?urinalysis?at?last?testing?showed?rbc's?but?patient?noted?that?urine?s ample?was?provided?during?her period and?she?had?no?symptoms. Urinalysis?today completely?negative Orders: Orders UA and rflx microscopic Today M54.50 - Low back pain, unspecified, Z00.00 - Encounter for general adult medical examination without abnormal findings Urine Dipstick Today M54.50 - Low back pain, unspecified, R31.9 - Hematuria, unspecified Medications: New cyclobenzaprine 10 mg PO BID 10 days PRN 30 tabs 0RF muscle spasm naproxen 500 mg PO BID 14 days 28 tabs 0RF
[2023-12-31 11:12] VITALS: BP 110/70; PULSE 76; RESP 16; TEMP 37.1; O2SAT 98; BMI 24.9
== END 2023-12-31 12:14 | disposition home or self-care (01) ==
PROVIDERS: PCP Family Medicine; Visit Provider Family Medicine
DX: M54.50 Low back pain, unspecified (principal); R31.9 Hematuria, unspecified

== ENCOUNTER 2023-12-31 10:39 | Outpatient (REF) | payer OTHER, SELFPAY | END 2023-12-31 10:40 | disposition home or self-care (01) | LOC: HO.LAB 10:39 | PROVIDERS: PCP Family Medicine; Visit Provider Family Medicine | DX: Z13.89 Encounter for screening for other disorder (principal) ==

== ENCOUNTER 2024-12-03 10:17 | Outpatient (AMB) | payer OTHER, SELFPAY ==
--- NOTE | 2024-12-03 10:19 | A.OFFPC_ITS ---
Vital Signs 12/03/24 10:24 Height 5 ft 7 in Weight 158 lb 4 oz BMI 24.8 BP 110/80 Blood Pressure Location Rt brachial Position Sitting Respiration 16 Pulse 60 Pulse Source Pulse Oximeter Temp 97.2 F Temp Source Temporal Artery Scan Pulse Oximetry (%) 98 Oxygen Delivery Method Room Air Intake Visit Reasons: Elbow pain /PT referral Intake Note: Francesca presents in the office today for left elbow pain and a PT referral. Allergies No Known Allergies Allergy (Verified 12/03/24 10:21) Medication List - Last Reconciled 12/03/24 by Jeremiah Luu MD [id number] ox-zinc 500-750-1.5-25 [id number]-fd-zh-mg ER tabs PO Tobacco use date assessed: 12/03/24 Dental Screening Dental Screen Date: 12/03/24 Did you have a dental visit in the last 12 months?: Yes Did you have a dental problem in the last 6 months where you did not have access to dental care?: No Was dental information given to patient?: Patient has dentist HPI Elbow pain /PT referral HPI Details 49 y/o female presents with complaints o f L elbow pain. Notes she has had problems with her R elbow before. Also has complaints of L wrist pain. [facility] Medical History (Updated 12/03/24 @ 10:57 by Amilcar Frederick) Tendonitis Colon cancer screening Surgical History (Updated 08/28/23 @ 10:54 by Gaby Perez CMA) No pertinent past surgical history Family History Mother High blood pressure Biliary tract cancer Father High blood pressure Prostate cancer Paternal Grandmother Diabetes 1.5, managed as type 2 Sister Type 1 diabetes Brother Substance abuse in family Social History (Updated 12/03/24 @ 10:23 by Heavenly Gunter MA) Household Members: Family Housing: House Are you a primary healthcare market consultant to a significant other at home: No Do you presently have visiting nurse or other home services: No 75 years or older and lives alone: No Alcohol intake: current Alcohol intake frequency: holidays/special occasions only Alcohol type: wine and other Patient Tobacco Use Status: Never used Tobacco e-Cigarette/Vaping Use: Never Used Second Hand Smoke Exposure: No Use of substances other than those prescribed or required for medical reasons: No Agree to transfusion: No service: No Current occupational status: employed 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 Cognitive needs: No Hearing needs: No Vision needs: No Questionnaire PHQ-9 Over the last 2 weeks, how often have you been bothered by any of the following problems? 1. Little interest or pleasure in doing things: not at all 2. Feeling down, depressed, or hopeless: not at all 3. Trouble falling or staying asleep, or sleeping too much: not at all 4. Feeling tired or having little energy: not at all 5. Poor appetite or overeating: not at all 6. Feeling bad about yourself - or that you are a failure or have let yourself or your family down: not at all 7. Trouble concentrating on things, such as reading the newspaper or watching television: not at all 8. Moving or speaking so slowly that other people could have noticed. Or the opposite - being so fidgety or restless that you have been moving around a lot more than usual: not at all 9. Thoughts that you would be better off or of hurting yourself in some way: not at all Total score: 0 Depression Screening Interpretation: Negative Depression Screening Done: Yes 57751 - PHQ-9 Billing: Yes Source: Developed by Drs. Carlos Manuel Renteria, Whitney Ca, Navdeep Reid and colleagues, with an educational marimar from [employer]. Thrive Questionnaire Date Thrive assessed: 12/02/24 I am a: Patient What is your living situation today?: I have a steady place to live Within the past 12 months, did the food you bought not last and you didn't have the money to get more?: Never true Within the past 12 months, did you worry whether your food would run out before you got money to buy more?: Never true Do you have trouble paying for medicines?: No Do you have trouble getting transportation to medical appointments?: No Do you have trouble paying your heating and electricity bill?: No Do you have trouble taking care of your child, family member or friend?: No Do you have trouble with day-to-day activities such as bathing, preparing meals, shopping, managing finances, etc.?: No Are you currently unemployed and looking for a job?: No Are you interested in more education?: No Please select the resources that you would like help with: None Currently or been in a relationship where the following occur: No concerns reported THRIVE Score: 0 AUDIT C Alcohol Use Questionnaire (AUDIT-C) 1. How often do you have a drink containing alcohol?: 2-4 times a month 2. How many drinks containing alcohol do you have on a typical day when you are drinking?: 1 or 2 3. How often do you have six or more drinks on one occasion?: Never Total Score: 2 LIZ-7 AMB Questionnaire LIZ-7 Date LIZ - 7 assessed: 12/03/24 Feeling nervous, anxious, or on edge: 0 = Not at all Not being able to stop or control worryin = Not at all Worrying too much about different things: 0 = Not at all Trouble relaxin = Not at all Being so restless that it is hard to sit still: 0 = Not at all Becoming easily annoyed or irritable: 0 = Not at all Feeling afraid as if something awful might happen: 0 = Not at all Total LIZ-7 score (0-4 normal; 5-9 mild; 10-14 moderate; 15-21 severe): 0 Source: Developed by Drs. Carlos Manuel Renteria, Whitney Ca, Navdeep Reid and colleagues, with an educational marimar from [employer]. LIZ-7 Assessment Billing LIZ-7 Assessment Tool: LIZ-7 Assessment 01402 Review of Systems Const Denies chills, Denies fatigue, Denies fever(s), Denies headache(s) and Denies weakness ENT Denies dizziness and Denies headache(s) Card Denies dyspnea Resp Denies cough, Denies dyspnea, Denies wheezing and Denies other (shortness of breath) Musc Denies numbness and Denies tingling Neuro Denies dizziness, Denies headache(s), Denies numbness, Denies tingling and Denie s weakness Psych Denies anxiety and Denies depression Endo Denies fatigue Aller/Immun Denies wheezing Physical exam (Primary Care) Vital Signs: Last Vital Signs Temp 97.2 F 12/03/24 10:24 Pulse 60 12/03/24 10:24 Resp 16 12/03/24 10:24 BP 110/80 12/03/24 10:24 Pulse Ox 98 12/03/24 10:24 Oxygen Delivery Method Room Air 12/03/24 10:24 BMI result Body Mass Index 24.8 Tobacco/Smoking Status: Tobacco use Status Tobacco use date assessed 12/03/24 12/03/24 10:26 Patient Tobacco Use Status Never used Tobacco 12/03/24 10:23 e-Cigarette/Vaping Use Never Used 12/03/24 10:23 PHQ-9: PHQ-9 Score PHQ-9: Total score 0 12/03/24 10:45 Depression Screening Interpretation: Negative Thrive Assessment: Date of Thrive Assessment Date Thrive assessed 12/02/24 12/03/24 10:19 Currently or been in a relationship where the following occur: No concerns reported Const General: well developed; No acute distress Nutritional Appearance: well nourished Orientation/consciousness: patient oriented x3 HENMT Head: Yes normocephalic and Yes atraumatic Eyes General: appearance normal, both eyes and all related structures Pupils: Equal, round and reactive pupils present EOM: EOMs intact bilaterally Resp Effort & Inspection: normal respiratory effort Neuro General: patient oriented x3 and gait normal Cranial nerves: Yes Equal, round and reactive pupils present Psych Affect: normal affect Coding Level of Care Code Est Pt Level 3 (91060) Diagnoses Left elbow pain M25.522 Left wrist pain M25.532 Additional Codes LIZ-7 Assessment Billing - LIZ-7 Assessment Tool: LIZ-7 Assessment 30000 ([id number]) PHQ-9 - 44427 - PHQ-9 Billing: Yes ([id number]) Assessment & Plan Assessment & Plan (1) Left elbow pain: Code(s): M25.522 - Pain in left elbow Category: Medical (2) Left wrist pain: Code(s): M25.532 - Pain in left wrist Category: Medical Plan Left epicondylitis and likely wrist tendonitis Advised Relative rest Ice Compression or bracing Changes to environments such as better support when typing NSAIDs We discussed physical therapy/occupational therapy. She has had this before for her other elbow and remembers the exercises. She wants to perform these exercises at home and she will let me know if she would like to switch to formal OT If not improving can start formal occupational therapy and wore refer to ortho
[2024-12-03 10:24] VITALS: BP 110/80; PULSE 60; RESP 16; TEMP 36.2; O2SAT 98; BMI 24.8
--- OUTSIDE RECORDS SUMMARY | 2024-12-03 11:22 | XMS_ITS | Clinical Summary ---
Author Organization [facility] Address [address] [place] [id number] Phone Care Team Providers Care Baker Pastry Name Role Phone Priscilla Bender MD Primary Care Provid er Allergies No known active allergies Medications niacin (NIASPAN) 500 MG CR tablet Take 500 mg by mouth nightly at bedtime. Active Active Problems Problem Noted Date Diagnosed Date Epidermal inclusion cyst 05/05/2023 Pilar cyst 05/05/2023 Dilated pore of [place] 05/05/2023 History of basal cell carcinoma 05/05/2023 Family History Medical History Relation Comments Prostate cancer Father Breast cancer Mother Relation Status Comments Father Mother Social History Tobacco Use Types Packs/Day Years Used Date Smoking Tobacco: Never Smokeless Tobacco: Never Tobacco Cessation:Counseling Given: Not Answered Alcohol Use Standard Drinks/Week Comments Yes 0 (1 standard drink = 0.6 oz pur e alcohol) Education Answer Date Recorded Are you interested in more education? Not on geovanni e 04/24/2023 Are you concerned about learning? Not on file 04/24/2023 No 04/24/2023 No 04/24/2023 Digital Access Answer Date Recorded No 04/24/2023 No 04/24/2023 Reliable internet access at home? Not on file 04/24/2023 Device with a working camera? Not on file Comments Unknown Sex and Gender Information Value Date Recorded Sex Assigned at Not on file Legal Sex Female 5:22 PM EST Gender Identity Not on file Sexual Orientation Not on file Last Filed Vital Signs Vital Sign Reading Time Taken Comments Blood Pressure 106/65 05/05/2023 3:40 PM EST Pulse 59 05/05/2023 3:40 PM EST Temperature - - Respiratory Rate - - Oxygen Saturation - - Inhaled Oxygen Concentration - - Weight 72.6 kg (160 lb) 05/05/2023 3:40 PM EST Height 170.2 cm (5' 7 ) 05/05/2023 3:40 PM EST Body Mass Index 25.06 05/05/2023 3:40 PM EST Plan of Treatment Health Maintenance Due Date Last Done Comments Adult Td,Tdap Booster 1973 LIPID PANEL 1973 DEPRESSION SCREENING 1985 HEPATITIS C SCREENING 1991 HIV ONE-TIME SCREENING (18-6 5 YEARS) 1991 PAP SMEAR 1994 SMOKING STATUS SCREENING (On ce After 26 Yrs) 1999 SCREENING FOR DIABETES 2008 MAMMOGRAM 2013 COLOGUARD 2018 COLONOSCOPY 2018 COLORECTAL CANCER SCREENING 2018 FIT TEST 2018 FOBT 2018 SIGMOIDOSCOPY 2018 VIRTUAL COLONOSCOPY 2018 PNEUMOCOCCAL VACCINES (50+ years) (1 of 1 - PCV) 2023 ZOSTER VACCINES (1 of 2) 2023 COVID-19 VACCINE (4 - 2023-2 5 season) 2023 02/16/2021, 08/06/2020, 07/16/2020 HEPATITIS A VACCINES Aged Out No long er eligible based on patient's age to complete this topic HIB VACCINES Aged Out No longer eligi ble based on patient's age to complete this topic MENINGOCOCCAL VACCINES (ACWY) Aged Out No longer eligible based on patient's age to complete this topic MENINGOCOCCAL VACCINES (B) Aged Out N o longer eligible based on patient's age to complete this topic Medical Devices Not on file Insurance [facility] [place] [address] [place] [address] POS EPO [facility] POS EPO [facility] [place] [address] [place] [address] POS EPO [place], [place] [facility] POS EPO [place], [place] Care Teams Baker Pastry Relationship Specialty Start Date End Date Priscilla Bender MD [address] [place] [address] PCP - General 04/24/23 Additional Source Comments The information contained in this document represents components of the legal health record. It is not the complete legal health record.[facility]
== END 2024-12-03 11:01 | disposition home or self-care (01) ==
PROVIDERS: PCP Family Medicine; Visit Provider Family Medicine
DX: M25.522 Pain in left elbow (principal); M25.532 Pain in left wrist

== ENCOUNTER → 2024-12-03 10:17 | Outpatient (BNVA) | payer OTHER, SELFPAY | PROVIDERS: PCP Family Medicine; Visit Provider Family Medicine | DX: M25.522 Pain in left elbow (principal); M25.532 Pain in left wrist | CPT/HCPCS: 96127; 99212 ==

== ENCOUNTER 2024-12-17 07:51 | Outpatient (REF) | payer OTHER, SELFPAY ==
--- OUTSIDE RECORDS SUMMARY | 2024-12-17 07:53 | XMS_ITS | Clinical Summary ---
Author Organization [facility] Address [address] [place] [phone] Phone Care Team Providers Care Ship'S Officer Name Role Phone Priscilla Bender MD Primary [...] 2023 ZOSTER VACCINES (1 of 2) 2023 INFLUENZA VACCINE (#1) 2024 COVID-19 VACCINE (4 - 2024-2 6 season) 2024 02/16/2021, 08/06/2020, 07/16/2020 HEPATITIS A VACCINES Aged [...] topic Medical Devices Not on file Insurance [address] [place], [place] [id number] POS EPO [facility] POS EPO [place] [facility] POS EPO [facility] POS EPO [facility] POS EPO [facility] POS EPO [place] Care Teams Ship'S Officer Relationship Specialty Start Date End Date Priscilla Bender MD [address] [place] [id number] PCP - General 04/24/23 Additional Source Comments The information contained in this document represents components of the legal health record. It is not the complete legal health record.[facility]
[2024-12-17 11:42] LABS: Appearance Urine Clear; Glucose Urine UA Negative (Negative); PH 7.5 (5.0-9.0); Specific Gravity - Urine 1.015 (1.005-1.025)
[2024-12-17 11:47] LABS: Alanine Aminotransferase 22 U/L (0-31); Albumin Level 4.2 g/dL (3.5-5.0); Alkaline Phosphatase 70 U/L (39-117); Anion Gap 8 (12-20); Aspartate Amino Transferase 29 U/L (5-31); Blood Urea Nitrogen 12 mg/dL (9-16); Calcium 9.1 mg/dL (8.4-10.2); Carbon Dioxide 29 mmol/L (22-29); Chloride 108 mmol/L (96-108); Cholesterol 149 mg/dL (<200); Estimated Glomerular Filt Rate > 60; HDL Cholesterol 50 mg/dL (>40); Potassium 3.9 mmol/L (3.3-5.1); Sodium 141 mmol/L (135-145); Total Protein 6.7 g/dL (6.5-8.0); Triglycerides 81 mg/dL (<150)
== END 2024-12-17 07:52 | disposition home or self-care (01) ==
LOC: HO.WFDLDS 07:51
PROVIDERS: Visit Provider Family Medicine
DX: Z00.00 Encounter for general adult medical examination without abnormal findings (principal); I10 Essential (primary) hypertension; E55.9 Vitamin D deficiency, unspecified
CPT/HCPCS: 36415; 80053; 80061; 81003; 82043; 82306; 82570; 84443

== ENCOUNTER 2024-12-22 15:01 | Outpatient (AMB) | payer OTHER, SELFPAY ==
--- NOTE | 2024-12-22 15:08 | A.OFFPC_ITS ---
Vital Signs 12/22/24 15:10 Height 5 ft 7 in Weight 160 lb BMI 25.1 BP 101/66 Blood Pressure Location Lt brachial Position Sitting Respiration 12 Pulse 58 Pulse Source Pulse Oximeter Temp 97.2 F Temp Source Oral Pulse Oximetry (%) 98 Oxygen Delivery Method Room Air Intake Visit Reasons: Physical / Dr. Watters PtWalter Intake Note: Cpe. Patient c/o ear been clogged up. Patient needs a referral for dermatology for tomorrow appt. 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 DEXA n/a still getting periods. Tdap Flu declined Optho s/p lasix for eye 1997; would like updated eye exam, referred today to Dr Barnett Skin needs updated referral to [place] derm for BCC History of Present Illness The patient is a 49-year-old female presenting with a physical exam. Basal Cell Carcinoma: - Regular dermatology checks for skin ca rcinoma. Colon Polyp: - Previous colonoscopy showed tubular ad enoma. - Scheduled for five-year monitoring. Diverticulosis: - Previous diagnosis, no current related complaints. Tendinitis L elbow: - August onset of tendinitis symptoms. - History of limited success with physic al therapy. - Naproxen is beneficial for reducing in flammation. Social History - Vegetarian since age 14 - Participates in gym activities and exe rcises regularly - Recently traveled internationally Review of Systems - Musculoskeletal: Reports tendinitis, n o improvement after physical therapy. - GI: Denies current abdominal pain or s ymptoms of diverticulosis. - Dermatologic: Follow-up for basal cell carcinoma. - HEENT: Reports ears feel plugged. - Reproductive: Reports irregular menstr uation likely due to perimenopause. - Neurologic: Denies any focal neurologi michele deficits. Physical Exam General: Well developed, well nourished, in no acute distress. Appears stated age. Head: Normocephalic, atraumatic. Eyes: Pupils are equal, round and reactive to light and accommodation. Conjunctivae are clear. Scleras nonicteric bilat. Ears: TMs clear AU, EACS WNL. Nose: Patent, without discharge. Neck: No carotid bruit bilat. Supple, no adenopathy or thyromegaly. Breast: Edu on SBE Lungs: Clear to auscultation bilaterally. No rales, rhonchi or wheeze noted. Good air flow in all cespedes. Heart: Regular rate and rhythm. No murmurs, click, rubs or gallops are noted. Abdomen: Bowel sounds present in all quadrants. The abdomen is soft, nontender, with no masses or organomegaly noted. No hernias are noted. : Deferred. Reviewed SONIA & recommendations for routine FIBER DESIGNER Pulses: Peripheral pulses are equal and palpable bilaterally. Extremities: No clubbing, cyanosis nor edema is noted. Neurologic: Gait and station normal. Cranial Nerves 2-12 intact. Motor strength grossly symmetrical and intact. No sensory loss. Balance normal. Skin: No rashes, ulcers, or lesions noted. Turgor is good. Skin color is good. Hair and nails are without abnormalities. Psych: Normal eye contact, affect and mood appropriate, and normal interactions. Patient is alert and appropriate to context. Results Labs 12/17/24 normal CMP, Vit d, lipid profile, TSH, UA , Urine micro/alb Discussion Notes I discussed the ongoing management of basal cell carcinoma surveillance, diverticulosis, and the next steps following the discovery of a colon polyp previously. Review of recent laboratory findings was all normal, including concerns about protein intake from a vegetarian diet, which were allayed. Advised on the benefits of naproxen for managing tendinitis and discussed the benefits of wearing a brace. Counseling provided to assess potential repetitive strain causes related to lifestyle. Recommended updating tetanus vaccination and influenza vaccination, the latter of which the patient elected to decline. Sean weldon was provided on B12 screening due to dietary habits. Patient was given time to ask questions. All questions were answered to their satisfaction. Assessment and Plan 1. Basal Cell Carcinoma - Continue annual dermatology checks. 2. Colon Polyp - Five-year repeat colonoscopy schedule. 3. Diverticulosis - Maintain dietary fiber intake. 4. Tendinitis - Naproxen and brace as planned. - Orthopedic evaluation if symptoms pers ist. 5. Tdap admin; flu declined. Patient Instructions - Use naproxen or ibuprofen as directed for tendinitis. - Wear a supportive brace during activit ies as needed. - Schedule dermatology appointments billy ally. - Schedule colonoscopy in five years. - Ensure a balanced diet, especially for infection prevention and avoiding diverticulosis complications. - Receive the tetanus vaccination today. - Follow up with next B12 screening duri ng future labs. - RTO 1 year w/ labs for CPE. Sooner as needed. Consent Patient was informed and verbally consented to the use of an ambient scribe for clinic note documentation during this visit. An additional 20 minutes was spent addressing the problem(s) noted at todays visit. This includes time spent before the visit reviewing the chart, time spent during the visit, and time spent after the visit on documentation reviewing laboratory results, diagnostic imaging, medications, performing a medically necessary evaluation, counseling on diagnoses, care coordination, ordering appropriate tests, ordering appropriate medications, review of tests performed by other providers, reporting test results with the patient, communication with other healthcare providers. [facility] Medical History (Updated 12/23/24 @ 11:40 by ARIELLA Cabral-PRAMOD) Colon cancer screening Tendonitis Surgical History (Updated 12/22/24 @ 15:13 by ARIELLA Cabral-PRAMOD) No pertinent past surgical history Family History Mother High blood pressure Biliary tract cancer Father High blood pressure Prostate cancer Paternal Grandmother Diabetes 1.5, managed as type 2 Sister Type 1 diabetes Brother Substance abuse in family Social History (Updated 12/03/24 @ 10:23 by Heavenly Gunter MA) Household Members: Family Housing: House Are you a primary pharmacy care coordinator to a significant other at home: No Do you presently have visiting nurse or other home services: No 75 years or older and lives alone: No Alcohol intake: current Alcohol intake frequency: holidays/special occasions only Alcohol type: wine and other Patient Tobacco Use Status: Never used Tobacco e-Cigarette/Vaping Use: Never Used Second Hand Smoke Exposure: No Agree to transfusion: No service: No Current occupational status: employed 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 Cognitive needs: No Hearing needs: No Vision needs: No Questionnaire PHQ-9 Over the last 2 weeks, how often have you been bothered by any of the following problems? 1. Little interest or pleasure in doing things: not at all 2. Feeling down, depressed, or hopeless: not at all 3. Trouble falling or staying asleep, or sleeping too much: not at all 4. Feeling tired or having little energy: not at all 5. Poor appetite or overeating: not at all 6. Feeling bad about yourself - or that you are a failure or have let yourself or your family down: not at all 7. Trouble concentrating on things, such as reading the newspaper or watching television: not at all 8. Moving or speaking so slowly that other people could have noticed. Or the opposite - being so fidgety or restless that you have been moving around a lot more than usual: not at all 9. Thoughts that you would be better off or of hurting yourself in some way: not at all Total score: 0 Depression Screening Interpretation: Negative Depression Screening Done: Yes 58632 - PHQ-9 Billing: Yes Source: Developed by Drs. Carlos Manuel Renteria, Whitney Ca, Navdeep Reid and colleagues, with an educational marimar from [employer], [place]. Thrive Questionnaire Date Thrive assessed: 12/22/24 I am a: Patient What is your living situation today?: I have a steady place to live Within the past 12 months, did the food you bought not last and you didn't have the money to get more?: Never true Within the past 12 months, did you worry whether your food would run out before you got money to buy more?: Never true Do you have trouble paying for medicines?: No Do you have trouble getting transportation to medical appointments?: No Do you have trouble paying your heating and electricity bill?: No Do you have trouble taking care of your child, family member or friend?: No Do you have trouble with day-to-day activities such as bathing, preparing meals, shopping, managing finances, etc.?: No Are you currently unemployed and looking for a job?: No Are you interested in more education?: No Please select the resources that you would like help with: None Currently or been in a relationship where the following occur: No concerns reported THRIVE Score: 0 AUDIT C Alcohol Use Questionnaire (AUDIT-C) 1. How often do you have a drink containing alcohol?: Never 3. How often do you have six or more drinks on one occasion?: Never Total Score: 0 Score Reviewed/Action Taken: Yes LIZ-7 AMB Questionnaire LIZ-7 Date LIZ - 7 assessed: 12/22/24 Feeling nervous, anxious, or on edge: 0 = Not at all Not being able to stop or control worryin = Not at all Worrying too much about different things: 0 = Not at all Trouble relaxin = Not at all Being so restless that it is hard to sit still: 0 = Not at all Becoming easily annoyed or irritable: 0 = Not at all Feeling afraid as if something awful might happen: 0 = Not at all Total LIZ-7 score (0-4 normal; 5-9 mild; 10-14 moderate; 15-21 severe): 0 Source: Developed by Drs. Carlos Manuel Renteria, Whitney Ca, Navdeep Reid and colleagues, with an educational marimar from [employer], [place]. LIZ-7 Assessment Billing LIZ-7 Assessment Tool: LIZ-7 Assessment 14790 Physical exam (Primary Care) Vital Signs: Last Vital Signs Temp 97.2 F 12/22/24 15:10 Pulse 58 12/22/24 15:10 Resp 12 12/22/24 15:10 BP 101/66 12/22/24 15:10 Pulse Ox 98 12/22/24 15:10 Oxygen Delivery Method Room Air 12/22/24 15:10 BMI result Body Mass Index 25.1 Tobacco/Smoking Status: Tobacco use Status Tobacco use date assessed 12/03/24 12/22/24 15:11 Patient Tobacco Use Status Never used Tobacco 12/22/24 15:11 e-Cigarette/Vaping Use Never Used 12/22/24 15:11 PHQ-9: PHQ-9 Score PHQ-9: Total score 0 12/22/24 15:47 Depression Screening Interpretation: Negative Thrive Assessment: Date of Thrive Assessment Date Thrive assessed 12/22/24 12/22/24 15:12 Currently or been in a relationship where the following occur: No concerns reported Immunizations Boostrix Tdap 2.5 Lf unit-8 mcg-5 Lf/0.5 mL intramuscular syringe Performing Provider: ALESSANDRA Cabral Performing Location: [facility] Administered by: Araseli Crespo MA on 12/22/24 15:47 Dose Route Admin Location Dispensed Lot Number Expiration Date NDC Vp Of Technology 0.5 mL IM Left Deltoid 0.5 mL [id number] 02/02/27 [id number] [employer] Total Dispensed Waste 0.5 mL 0 % VIS Given Date VIS Provided VIS Publication Date 12/22/24 Single Vaccine 20 Eligibility Eligibility Date Funding Source Not [facility] Eligible 12/22/24 Private Coding Level of Care Code Est Pt Level 3 (60654) Est Pt Prev Care 40-64y(88447) Diagnoses Adult general medical exam Z00.00 History of colonoscopy Z98.890 History of basal cell carcinoma of skin Z85.828 Vegetarian diet Z78.9 Blurred vision, bilateral H53.8 Right low back pain M54.50 Laboratory exam ordered as part of routine general medical examination Z00.00 Lateral epicondylitis M77.10 Influenza vaccination declined Z28.21 Need for Tdap vaccination Z23 Additional Codes LIZ-7 Assessment Billing - LIZ-7 Assessment Tool: LIZ-7 Assessment 32510 ([id number]) PHQ-9 - 56079 - PHQ-9 Billing: Yes ([id number]) Assessment & Plan Assessment & Plan (1) Adult general medical exam: Onset Date: ~12/22/24 Code(s): Z00.00 - Encounter for general adult medical examination without abnormal findings Category: Medical (2) History of colonoscopy: Onset Date: ~2023 Code(s): Z98.890 - Other specified postprocedural states Category: Medical (3) History of basal cell carcinoma of skin: Code(s): Z85.828 - Personal history of other malignant neoplasm of skin Category: Medical (4) Vegetarian diet: Code(s): Z78.9 - Other specified health status Category: Medical (5) Blurred vision, bilateral: Code(s): H53.8 - Other visual disturbances Category: Medical (6) Right low back pain: Code(s): M54.50 - Low back pain, unspecified Category: Medical (7) Laboratory exam ordered as part of routine general medical examination: Code(s): Z00.00 - Encounter for general adult medical examination without abnormal findings Category: Medical (8) Lateral epicondylitis: Code(s): M77.10 - Lateral epicondylitis, unspecified elbow Category: Medical (9) Influenza vaccination declined: Onset Date: ~12/23/24 Code(s): Z28.21 - Immunization not carried out because of patient refusal Category: Medical (10) Need for Tdap vaccination: Code(s): Z23 - Encounter for immunization Category: Medical Plan , Orders: Orders Hemoglobin A1c 1 Year Z00.00 - Encounter for general adult medical examination without abnormal findings, Z78.9 - Other specified health status Lipid Panel 1 Year Z00.00 - Encounter for general adult medical examination without abnormal findings, Z78.9 - Other specified health status Microalbumin, Random (w Creat) 1 Year Z00.00 - Encounter for general adult medical examination without abnormal findings, Z78.9 - Other specified health status Vitamin B12 and Folate 1 Year Z00.00 - Encounter for general adult medical examination without abnormal findings, Z78.9 - Other specified health status Vitamin D 25-OH Total 1 Year Z00.00 - Encounter for general adult medical examination without abnormal findings, Z78.9 - Other specified health status TSH reflex Free T4 1 Year Z00.00 - Encounter for general adult medical examination without abnormal findings, Z78.9 - Other specified health status Complete Blood Count no Diff 1 Year Z00.00 - Encounter for general adult medical examination without abnormal findings, Z78.9 - Other specified health status Comprehensive [place]. Panel Fast 1 Year Z00.00 - Encounter for general adult medical examination without abnormal findings, Z78.9 - Other specified health status TDaP Immunization 12/22/24 Z23 - Encounter for immunization Referrals Dermatology Referral Z85.828 - Personal history of other malignant neoplasm of skin Optometry Referral H53.8 - Other visual disturbances Chiropractic Referral M54.50 - Low back pain, unspecified Patient Instructions: Health screenings for women You should visit your health care provider from time to time, even if you are healthy. The purpose of these visits is to: Screen for medical issues Assess your risk for future medical problems Encourage a healthy lifestyle Update vaccinations and other preventive care services Help you get to know your provider in case of an illness Information Even if you feel fine, you should still see your provider for regular checkups. These visits can help you avoid problems in the future. For example, the only way to find out if you have high blood pressure is to have it checked regularly. High blood sugar and high cholesterol levels also may not have any symptoms in the early stages. A simple blood test can check for these conditions. There are specific times when you should see your provider or receive specific health screenings. The [place] Preventive Services Task Force publishes a list of recommended screenings. Below are screening guidelines for women ages 18 to 39. BLOOD PRESSURE SCREENING Your blood pressure should be checked at least once every 3 to 5 years if: Your blood pressure is in the normal range (top number less than 120 mm Hg and b ottom number less than 80 mm Hg) You don't have risk factors for high blood pressure Ask your provider if you need your blood pressure checked more often if: The top number is 120 to 129 mm Hg or the bottom number is 70 to 79 mm Hg You have diabetes, heart disease, kidney problems, are overweight, or have certain other health conditions You have a first-degree relative with high blood pressure You are Black You had high blood pressure during a If the top number is 130 mm Hg or greater or the bottom number is 80 mm Hg or greater, this is considered stage 1 hypertension. Schedule an appointment with your provider to learn how you can reduce your blood pressure. Watch for blood pressure screenings in your area. Ask your provider if you can stop in to have your blood pressure checked. BREAST CANCER SCREENING Experts do not agree about the benefits of breast self-exams in finding breast cancer or saving lives. Talk to your provider about what is best for you. A screening mammogram is not recommended for most women under age 40. Your provider may discuss and recommend mammograms, MRI scans, or ultrasounds if you have an increased risk for breast cancer, such as: A mother or sister who had breast cancer at a young age (most often starting screening earlier than the age the close relative was diagnosed) You carry a high-risk genetic marker CERVICAL CANCER SCREENING Cervical cancer screening should start at age 21 years unless your provider advises otherwise. After the first test: Women ages 21 through 29 should have a Pap test every 3 years. Exoprts do not agree on whether HPV testing is recommended for this age group. Women ages 30 through 65 should be screened with either a Pap test every 3 years or the HPV test every 5 years or both tests every 5 years (called cotesting ). Women who have been treated for precancer (cervical dysplasia) should continue to have Pap tests for 20 years after treatment or until age 65, whichever is longer. If you have had your uterus and cervix removed (total hysterectomy), and you have not been diagnosed with cervical cancer or precancer (high grade cervical neoplasia), you do not need cervical cancer screening. CHOLESTEROL SCREENING Cholesterol screening should begin at: Age 45 for women with no known risk factors for coronary heart disease Age 20 for women with known risk factors for coronary heart disease Repeat cholesterol screening should take place: Every 5 years for women with normal cholesterol levels More often if changes occur in lifestyle (including weight gain and diet) More often if you have diabetes, heart disease, kidney problems, or certain other conditions DIABETES SCREENING You should be screened for diabetes starting at age 35 and then repeated every 3 years if you have no risk factors for diabetes. Screening may need to start earlier and be repeated more often if you have other risk factors for diabetes, such as: You have a first degree relative with diabetes. You are overweight or have obesity. You have high blood pressure, prediabetes, or a history of heart disease. Screening for diabetes should be done if you are planning to become and you are overweight and have other risk factors such as high blood pressure. DENTAL EXAM Go to the dentist once or twice every year for an exam and cleaning. Your dentist will evaluate if you need more frequent visits. EYE EXAM Have an eye exam every 5 to 10 years before age 40. If you have vision problems, have an eye exam every 2 years or more often if recommended by your provider. You should have an eye exam that includes an examination of your retina (back of your eye) at least every year if you have diabetes. IMMUNIZATIONS Commonly needed vaccines include: Flu shot: get one every year. COVID-19 vaccine: ask your provider what is best for you. Tetanus-diphtheria and acellular pertussis (Tdap) vaccine: have one at or after age 19 as one of your tetanus-diphtheria vaccines if you did not receive it as an adolescent. Tetanus-diphtheria: have a booster (or Tdap) every 10 years. Varicella vaccine: receive 2 doses if you never had chickenpox or the varicella vaccine. Hepatitis B vaccine: receive 2, 3, or 4 doses, depending on your exact circumstances. Measles, mumps, and rubella (MMR) vaccine: receive 1 to 2 doses if you are not already immune to MMR. Your provider can tell you if you are immune. Ask your provider about the human papillomavirus (HPV) vaccine if: You have not received the HPV vaccine in the past You have not completed the full vaccine series (you should catch up on this shot) Ask your provider if you should receive other immunizations if you have certain health problems that increase your risk for some diseases such as pneumonia. INFECTIOUS DISEASE SCREENING Women who are sexually active should be screened for chlamydia and gonorrhea up until age 25. Women 25 years and older should be screened for chlamydia and gonorrhea if at high risk. Screening for hepatitis C: All adults ages 18 to 79 should get a one-time test for hepatitis C. people should be screened at every . Screening for human immunodeficiency virus (HIV): All people ages 15 to 65 should get a one-time test for HIV. Depending on your lifestyle and medical history, you may also need to be screened for infections such as syphilis and HIV, as well as other infections. PHYSICAL EXAM All adults should visit their provider from time to time, even if they are healthy. The purpose of these visits is to: Screen for disease Assess your risk of future medical problems Encourage a healthy lifestyle Update your vaccinations and other preventive care services Maintain a relationship with a provider in case of an illness Your height, weight, and BMI should be checked at every exam. During your exam, your provider may ask you about: Depression and anxiety Diet and exercise Alcohol and tobacco use Safety issues, such as using seat belts, smoke detectors, and intimate partner violence Your medicines and risk for interactions SKIN SELF-EXAM Your provider may check your skin for signs of skin cancer, especially if you're at high risk, such as if you: Have had skin cancer before Have close relatives with skin cancer Have a weakened immune system OTHER SCREENING Talk with your provider about colon cancer screening if you have a strong family history of colon cancer or polyps, or if you have had inflammatory bowel disease or polyps yourself. Routine bone density screening of women under 40 is not recommended.
[2024-12-22 15:10] VITALS: BP 101/66; PULSE 58; RESP 12; TEMP 36.2; O2SAT 98; BMI 25.1
--- OUTSIDE RECORDS SUMMARY | 2024-12-22 17:35 | XMS_ITS | Clinical Summary ---
Author Organization Located Within [facility] Address [address] [place] [phone] Phone Care Team Providers Care Transfer Iron Operator Name Role Phone Priscilla Bender MD Primary [...] topic Medical Devices Not on file Insurance [address] [place], [place] [id number] [facility] [place] [facility] E[facility] E[facility] EPO [facility] POS EPO [place] Care Teams Transfer Iron Operator Relationship Specialty Start Date End Date Priscilla Bender MD [address] [place] [id number] PCP - General 04/24/23 Additional Source Comments The information contained in this document represents components of the legal health record. It is not the complete legal health record.Located Within [facility]
== END 2024-12-22 15:52 | disposition home or self-care (01) ==
LOC: HO.HMCFM 15:03
PROVIDERS: PCP Family Medicine; Visit Provider Nurse Practitioner Family
DX: Z23 Encounter for immunization (principal)

== ENCOUNTER → 2024-12-22 15:01 | Outpatient (BNVA) | payer OTHER, SELFPAY | PROVIDERS: PCP Family Medicine; Visit Provider Nurse Practitioner Family | DX: Z00.00 Encounter for general adult medical examination without abnormal findings (principal); Z23 Encounter for immunization; H53.8 Other visual disturbances; M54.50 Low back pain, unspecified; M77.10 Lateral epicondylitis, unspecified elbow; Z85.828 Personal history of other malignant neoplasm of skin; Z78.9 Other specified health status; Z98.890 Other specified postprocedural states; Z28.21 Immunization not carried out because of patient refusal; Z13.31 Encounter for screening for depression; Z13.39 Encounter for screening examination for other mental health and behavioral disorders | CPT/HCPCS: 90471; 90715; 96127; 99212; 99396 ==